=== PATIENT | female | born 1960 | race Caucasian/White ===

== ENCOUNTER → 2018-10-05 | Outpatient (CLI) | payer OTHER ==
[~2018-10-05] MED LIST: HYDACE5 PO; NAPR550 PO
[2018-10-06 15:07] LABS: HPV 16 Negative (Negative); HPV 18 Negative (Negative); HPV OTHER HR TYPES Negative (Negative)
== END | disposition home or self-care (01) ==
LOC: LAB 11:53 → LAB SHORT 11:53
PROVIDERS: Obstetrics & Gynecology
DX: Z01.419 Encounter for gynecological examination (general) (routine) without abnormal findings (principal)
CPT/HCPCS: 87624; G0123

== ENCOUNTER → 2019-04-13 | Outpatient (CLI) | payer OTHER ==
[2019-04-13 20:36] LABS: Free Thyroxine 1.18 ng/dL (0.70-1.60); Thyroid Stimulating Hormone 1.6 uIU/mL (0.360-4.800)
== END | disposition home or self-care (01) ==
LOC: LAB 16:54 → LAB SHORT 16:54
PROVIDERS: Hospitalist
DX: E03.9 Hypothyroidism, unspecified (principal)
CPT/HCPCS: 84439; 84443

== ENCOUNTER → 2021-02-18 | Outpatient (CLI) | payer OTHER ==
[2021-02-18 16:38] LABS: Free Thyroxine 1.19 ng/dL (0.70-1.60)
[2021-02-18 16:40] LABS: Thyroid Stimulating Hormone 0.996 uIU/mL (0.360-4.800); Triiodothyronine, Free 2.79 pg/mL (2.18-3.98)
== END ==
LOC: LAB SHORT 13:43 → LAB 13:43
PROVIDERS: Hospitalist
DX: E55.9 Vitamin D deficiency, unspecified (principal); E03.9 Hypothyroidism, unspecified
CPT/HCPCS: 82306; 84439; 84443; 84481

== ENCOUNTER 2021-07-22 13:31 | Day surgery (SDC) | payer OTHER ==
[~2021-07-22] VITALS: Ht 175.3 cm; Wt 58.0 kg
[2021-07-22] MEDS ORDERED: LEVSOD25 PO (14:12)
[2021-07-22] MEDS ORDERED: RIZATRIPTAN10 MG SL (14:12)
--- NOTE | 2021-07-22 14:38 | NUR ---
07/22/21 1438 James Hoyos CALL [place] WITHIN REACH
== END 2021-07-22 15:56 | disposition home or self-care (01) ==
LOC: ORSCSDS 13:31
PROVIDERS: Surgery
PROC: 0DJD8ZZ Inspection of Lower Intestinal Tract, Via Natural or Artificial Opening Endoscopic (ICD-10-PCS; principal; 2021-07-22 14:45)
DX: Z12.11 Encounter for screening for malignant neoplasm of colon (principal); E03.9 Hypothyroidism, unspecified; Z79.899 Other long term (current) drug therapy
CPT/HCPCS: J0330; J0461; J2405; J2704; J7120

== ENCOUNTER → 2021-08-06 | Outpatient (CLI) | payer OTHER ==
[~2021-08-06] MED LIST changes: +LEVSOD25 PO; +RIZATRIPTAN10 MG SL
== END | disposition home or self-care (01) ==
LOC: LAB SHORT 11:15
PROVIDERS: Hospitalist
DX: Z11.3 Encounter for screening for infections with a predominantly sexual mode of transmission (principal); Z12.4 Encounter for screening for malignant neoplasm of cervix
CPT/HCPCS: 86696

== ENCOUNTER → 2022-02-02 | Outpatient (CLI) | payer OTHER ==
[2022-02-02 16:45] LABS: Alanine Aminotransfer (ALT/SGP 33 U/L (12-78); Albumin, Blood 4.5 g/dL (3.4-5.0); Albumin/Globulin Ratio 1.5 (0.8-1.8); Alk Phos 49 U/L (50-136); Anion Gap 6 mmol/L (6-16); Aspartate Aminotrans (AST/SGOT 22 U/L (12-37); Bilirubin, Total 0.5 mg/dL (0.1-1.0); Blood Urea Nitrogen 14 mg/dL (8-24); CHOL/HDL RATIO 3.1; CO2, Blood 28 mmol/L (21-32); Calcium, Blood 10.2 mg/dL (8.5-10.1); Chloride, Blood 106 mmol/L (98-108); Cholesterol 218 mg/dL (50-200); Free Thyroxine 1.33 ng/dL (0.70-1.60); Globulin, Blood 3.1 g/dL (2.2-4.0); Glucose, Blood 96 mg/dL (70-99); HDL Cholesterol 71 mg/dL (>39); LDL/HDL RATIO 1.8; Low Density Lipoprotein Chol 126 mg/dL (0-110); Magnesium, Blood 2.2 mg/dL (1.6-2.4); Potassium, Blood 4.1 mmol/L (3.5-5.5); Sodium, Blood 140 mmol/L (136-145); Total Protein, Blood 7.6 g/dL (6.4-8.2); Triglycerides 103 mg/dL (30-160); Very Low Density Lipoprot Chol 20 mg/dL (6-32)
[2022-02-02 16:48] LABS: Bun/Creatinine Ratio 17.2 (12.0-20.0); Creatinine, Blood 0.82 mg/dL (0.40-1.00); Glomerular Filtration Rate 81 (60-); Thyroid Stimulating Hormone 0.931 uIU/mL (0.360-4.800); Triiodothyronine, Free 2.65 pg/mL (2.18-3.98)
== END | disposition home or self-care (01) ==
LOC: LAB SHORT 14:24 → LAB 14:24
PROVIDERS: Hospitalist
DX: E78.00 Pure hypercholesterolemia, unspecified (principal); E03.9 Hypothyroidism, unspecified; G43.809 Other migraine, not intractable, without status migrainosus
CPT/HCPCS: 80053; 80061; 83735; 84439; 84443; 84481

== ENCOUNTER → 2023-04-27 | Outpatient (CLI) | payer MEDICARE ==
[2023-04-27 15:26] LABS: CHOL/HDL RATIO 2.9; Cholesterol 220 mg/dL (50-200); Free Thyroxine 1.28 ng/dL (0.70-1.60); HDL Cholesterol 76 mg/dL (>39); LDL/HDL RATIO 1.7; Low Density Lipoprotein Chol 126 mg/dL (0-110); Magnesium, Blood 2.4 mg/dL (1.6-2.4); Triglycerides 91 mg/dL (30-160); Very Low Density Lipoprot Chol 18 mg/dL (6-32)
[2023-04-28 08:10] LABS: A/G RATIO 2.5 (1.2-2.2); BILIRUBIN, TOTAL 0.4 mg/dL (0.0-1.2); CREATININE, SERUM 0.87 mg/dL (0.57-1.00); GLOBULIN, TOTAL 1.9 g/dL (1.5-4.5); POTASSIUM, SERUM 5.1 mmol/L (3.5-5.2); PROTEIN, TOTAL, SERUM 6.6 g/dL (6.0-8.5)
== END ==
LOC: LAB 12:17 → LAB SHORT 12:17
PROVIDERS: Hospitalist
DX: E03.9 Hypothyroidism, unspecified (principal); E55.9 Vitamin D deficiency, unspecified; E78.00 Pure hypercholesterolemia, unspecified
CPT/HCPCS: 80053; 80061; 82306; 83735; 84439; 84443

== ENCOUNTER → 2024-08-03 | Outpatient (CLI) | payer MEDICARE ==
[2024-08-03 15:04] LABS: BASOPHILS ABSOLUTE AUTO 0.06 K/mm3 (0.00-0.23); BASOPHILS PERCENT AUTO 1 % (0-2); EOSINOPHILS ABSOLUTE AUTO 0.82 K/mm3 (0.00-0.68); EOSINOPHILS PERCENT AUTO 15 % (0-6); Hematocrit 44.6 % (33.0-51.0); Hemoglobin 14.9 g/dL (11.5-16.0); IMMATURE GRAN ABSOLUTE AUTO 0.01 K/mm3 (0.00-0.10); IMMATURE GRAN PERCENT AUTO 0 % (0-1); LYMPHOCYTES ABSOLUTE AUTO 1.58 K/mm3 (0.84-5.20); LYMPHOCYTES PERCENT AUTO 28 % (21-46); MONOCYTES ABSOLUTE AUTO 0.44 K/mm3 (0.16-1.47); MONOCYTES PERCENT AUTO 8 % (4-13); Mean Corpuscular HGB 30.2 pg (26.0-34.0); Mean Corpuscular HGB Conc 33.4 g/dL (31.5-36.5); Mean Corpuscular Volume 90 fL (80-100); Mean Platelet Volume 10.7 fL (9.1-12.4); NEUTROPHILS ABSOLUTE AUTO 2.71 K/mm3 (1.96-9.15); NEUTROPHILS PERCENT AUTO 48 % (41-73); Platelet Count 316 K/mm3 (150-400); RDW Coefficient Variation 12.3 % (11.7-14.2); RDW Standard Deviation 40.4 fL (35.1-46.3); Red Blood Cell Count 4.94 M/mm3 (3.80-5.20); White Blood Cell Count 5.62 K/mm3 (4.00-11.30)
[2024-08-03 21:56] LABS: Alanine Aminotransfer (ALT/SGP 25 U/L (12-78); Albumin, Blood 4.2 g/dL (3.4-5.0); Albumin/Globulin Ratio 1.6 (0.8-1.8); Alk Phos 47 U/L (50-136); Anion Gap 9 mmol/L (3-11); Aspartate Aminotrans (AST/SGOT 17 U/L (12-37); Bilirubin, Total 0.5 mg/dL (0.1-1.0); Blood Urea Nitrogen 15 mg/dL (8-24); Bun/Creatinine Ratio 17.4 (12.0-20.0); CHOL/HDL RATIO 3.1; CO2, Blood 28 mmol/L (21-32); Calcium, Blood 10.4 mg/dL (8.5-10.1); Chloride, Blood 105 mmol/L (98-108); Cholesterol 217 mg/dL (50-200); Creatinine, Blood 0.86 mg/dL (0.40-1.00); Globulin, Blood 2.7 g/dL (2.2-4.0); Glomerular Filtration Rate 76 (60-); Glucose, Blood 91 mg/dL (70-99); HDL Cholesterol 71 mg/dL (>39); LDL/HDL RATIO 1.7; Low Density Lipoprotein Chol 123 mg/dL (0-110); Potassium, Blood 4.2 mmol/L (3.5-5.5); Sodium, Blood 138 mmol/L (136-145); Total Protein, Blood 6.9 g/dL (6.4-8.2); Triglycerides 115 mg/dL (30-160); Very Low Density Lipoprot Chol 23 mg/dL (6-32)
== END ==
LOC: LAB 14:05 → LAB SHORT 14:05
PROVIDERS: Hospitalist
DX: E03.9 Hypothyroidism, unspecified (principal); E78.00 Pure hypercholesterolemia, unspecified
CPT/HCPCS: 80053; 80061; 84439; 84443; 85025